=== PATIENT | male | born 1965 | race Caucasian/White ===

== ENCOUNTER → 2019-06-03 09:54 | Outpatient (CLI) | payer OTHER, SELFPAY ==
[2019-06-03 09:51] VITALS: BMI 44.8
--- NOTE | 2019-06-03 09:58 | RAD_ITS ---
STUDY: X-RAY - LEFT WRIST REASON FOR EXAM: Male, 53 years old. Medial wrist pain following injury. TECHNIQUE: 3 view(s) of the wrist were obtained. COMPARISON: None. FINDINGS: Normal visualized distal radius and ulna. Normal radiocarpal articulation. Normal distal radioulnar articulation. Normal carpal bones. Normal carpal articulations. Normal carpometacarpal articulation of the thumb. Normal second through fifth carpometacarpal articulations. Normal visualized metacarpal bones. The soft tissue structures are unremarkable. RAD/Wrist min 3 Views IMPRESSION: Normal x-ray examination of the wrist. Electronically Signed: Anival Nesbitt, at 10:27 EDT , Service support ,
== END ==
PROVIDERS: Family Provider Family Medicine; PCP Family Medicine; Referring Provider Physician Assistant; Visit Provider Physician Assistant
DX: M25.532 Pain in left wrist (principal)
CPT/HCPCS: 73110

== ENCOUNTER 2019-11-12 22:37 | Emergency (ER) | payer OTHER, SELFPAY ==
[2019-06-03 09:51] VITALS: BMI 44.8
[2019-11-12 22:38] VITALS: BP 177/111; PULSE 89; RESP 16; TEMP 36.8; O2SAT 95; BMI 45.1
--- NOTE | 2019-11-12 22:49 | EKG12_ITS ---
Test Reason : SYNCOPE Blood Pressure : / mmHG Vent. Rate : 087 BPM Atrial Rate : 087 BPM P-R Int : 164 ms QRS Dur : 084 ms QT Int : 350 ms P-R-T Axes : 048 044 028 degrees QTc Int : 421 ms Normal sinus rhythm Normal ECG Confirmed by TANJA CONLEY, BAMBI ([id number]), editor trade journal MAX HUYNH ([id number]) on 11/15/2019 10:27:57 AM Referred By: SERGIO Confirmed By:BAMBI AGRAWAL MD
--- NOTE | 2019-11-12 22:50 | ED.VIS.GEN ---
History of Present Illness Chief Complaint: Syncope Informant: Patient Narrative: Stated that he has had upper respiratory infection for last 2 weeks with cough. The cough is had yellow and occasional clear sputum. Positive sick contacts at home. Non-smoker. No fevers or chills. He has been using cough lozenges. Patient had a coughing fit lasting a minute tonight. He stated that he felt lightheaded and passed out. This was witnessed by family. He woke up a few moments later. There is no seizure activity. The patient has never had passed out before. He denies chest pain or shortness of breath. Currently he feels normal. Came in for further evaluation. Denies any cardiac history. Only medical history per patient is hypertension. Past Medical History - Allergies and Home Meds Allergies/Adverse Reactions: Allergies No Known Allergies Allergy (Unverified 11/12/19 22:40) Primary Care Physician: NOT,DEFINED [NON-STAFF] - Prior records reviewed: Yes Past Medical History: - - Hypertension Surgical History: no surgical history Lives: With Family Smoking Status: Never smoker Alcohol: None Drugs: None Review of Systems General: Denies: Chills, Fever, Sweats Eyes: Denies: Visual changes - bilaterally, Diplopia ENT: Denies: Rhinorrhea, Sore throat Cardiovascular: Denies: Chest pain, Palpitations Respiratory: Reports: Cough. Denies: Dyspnea, Dyspnea on exertion Gastrointestinal: Denies: Abdominal pain, Nausea, Vomiting, Diarrhea, Melena, Hematochezia Genitourinary: Denies: Dysuria, Hematuria, Frequency Musculoskeletal: Denies: Back pain, Extremity Pain Skin: Denies: Rash, Wounds Neurological: Denies: Headache, Weakness, Numbness Physical Exam Vital Signs/Narrative: Vital Signs Temp Pulse Resp BP Pulse Ox 11/12/19 22:38 98.3 F 89 16 177/111 H 95 General: Well nourished, Well developed, No Acute Distress Head: Normocephalic, Atraumatic Eyes: Perrl, EOMI ENT: Moist mucous membranes, No rhinorrhea Neck: Supple, Nontender Cardiovascular: Regular rate, Regular rhythm, No murmurs Respiratory: No distress, CTA bilaterally, Chest nontender Abdomen: Soft, Nontender, Nondistended, Normal bowel sounds Back: Nontender, Normal Inspection Extremities: Nontender, No edema Skin: Normal color, No rash Neurological: Alert, Oriented x3, Cranial nerves II-XII grossly intact, Normal Strength, Normal Sensation Psychological: Normal affect, Normal Mood Diagnostic/Tx/Re-eval - Medical Decision Making Patient appears well. I suspect that this was a vasovagal episode versus transient hypoxia from coughing. However he stated he was able to breathe between coughing fits. EKG lab work and chest x-ray obtained. EKG shows sinus rhythm at a rate of 87 with no ischemia or arrhythmia. No evidence of Brugada syndrome or [id number]. Lab work shows a mildly low potassium. Troponin negative. CBC normal. Chest x-ray shows nothing acute. At this time I feel this is vasovagal. Patient reassured. We will follow-up as an outpatient and use [id number] cough regimen for suspected upper respiratory infection versus bronchitis that is viral in nature. I do not feel he needs antibiotics. ED Disposition - Plan for ED Patient: Disposition: Home or Assisted Living Diagnosis: Acute bronchitis, Vasovagal syncope Instructions: SYNCOPE, Vasovagal Referrals: NOT,DEFINED [NON-STAFF] -
--- NOTE | 2019-11-12 23:25 | RAD_ITS ---
HISTORY: PT HAS HAD A COLD AND STARTED COUGHING AND THEN PASSED OUT EXAMINATION/TECHNIQUE: XR Chest 2 Views: COMPARISON: None FINDINGS: Cardiac telemetry leads in place. Shallow inspiration with mild hypoventilation of the lung bases on the frontal view. Normal heart size. No focal infiltrate. No vascular congestion or pleural effusion. No pneumothorax. RAD/Chest PA and Lateral IMPRESSION: No acute cardiopulmonary disease. at 0009 Reported and signed by: Xander Tenorio MD Electronically Signed: Xander Tenorio, at 0:08 EST Tel , Service support ,
[2019-11-12 23:26] LABS: Absolute Lymphocyte Count 2.18 X10^3/uL (0.83-4.51); Absolute Neutrophil Count 4.5 X10^3/uL (2.0-7.7); Basophil# 0.05 X10^3/uL; Basophil% 0.6 % (0-1); Eosinophil# 0.37 X10^3/uL; Eosinophils% 4.5 % (0-5); Hematocrit 39.9 % (40-54); Hemoglobin 13.4 g/dL (13.0-16.5); Lymphocyte # 2.18 X10^3/ul (4.0); Lymphocyte % 26.7 % (19-41); Mean Corp Hgb Conc 33.6 g/dL (32-36); Mean Corpuscular Hgb 30.7 pg (27.0-32.0); Mean Corpuscular Volume 91.5 fL (80-94); Mean Platelet Vol. 8.9 fl (6.2-12.0); Monocyte% 12.3 % (0-10); NRBC Flagged by Analyzer 0 % (0-5); Neutrophil # 4.54 X10^3/uL (2.7-7.7); Neutrophil % 55.7 % (47-70); Platelet Count 222 K/mm3 (150-450); RBC Distribution Width CV 12.6 % (11.6-14.6); RBC Distribution Width SD 42.1 fl (35.1-43.9); Red Blood Count 4.36 M/mm3 (4.6-6.2); White Blood Count 8.2 K/mm3 (4.4-11.0)
[2019-11-12 23:37] VITALS: BP 155/102; PULSE 82; RESP 16; O2SAT 98
[2019-11-12 23:46] LABS: Anion Gap 6 (5-15); BUN 20 mg/dL (7-18); BUN/Creat Ratio 15.9 RATIO (10-20); Calcium,Total 8.6 mg/dL (8.5-10.1); Chloride 106 mmol/L (98-107); Creatinine, Serum 1.26 mg/dL (0.70-1.30); EST Glomerular Filtration Rate 64 mL/min (>60); Est Glom Filt Rate - Afr Amer 77 mL/min (>60); Estimated Creatinine Clearance 66.35 ml/min; Glucose 165 mg/dL (74-106); Potassium 3.3 mmol/L (3.5-5.1); Sodium Level 141 mmol/L (136-145)
[2019-11-13] VITALS: BP 143/89; PULSE 92; RESP 20; O2SAT 94
[2019-11-13 00:22] VITALS: BP 143/89; PULSE 85; RESP 16; O2SAT 96
== END 2019-11-13 00:23 | disposition home or self-care (01) ==
PROVIDERS: Emergency Provider Emergency Medicine; Family Provider Nurse Practitioner Family; PCP Nurse Practitioner Family
DX: J20.9 Acute bronchitis, unspecified (principal); R55 Syncope and collapse; I10 Essential (primary) hypertension
CPT/HCPCS: 36415; 71046; 80048; 84484; 85025; 93005; 99283; A4216

== ENCOUNTER → 2023-12-23 | Outpatient (CLI) | payer SELFPAY ==
--- OUTSIDE RECORDS SUMMARY | 2023-12-23 06:33 | XMS RPT_ITS | CCD ---
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 [employer] Name Role Phone Judit Irving S Unavailable [phone] Unavailable Unavailable Judit Irving Primary Care Unavailab le MONTAÑO, JOVITA ALONZO Attending Unavailable MONTAÑO, JOVITA ALONZO Referring Unavailable Mallapareddi, Judit Hernandez Primary Care Unavailab le MONTAÑO, JOVITA ALONZO Attending Unavailable MONTAÑO, JOVITA ALONZO Referring Unavailable Mallapareddi, Judit Hernandez Primary Care Unavailab le Mallapareddi, Judit Hernandez Attending Unavailab le Mallapareddi, Judit Hernandez Referring Unavailab le Mallapareddi, Judit Hernandez Primary Care Unavailab le Mallapareddi, Judit Hernandez Attending Unavailab le Mallapareddi, Judit Hernandez Referring Unavailab le MALLAPAREDDI, JUDIT HERNANDEZ S Primary Care Unavail able Mallapareddi MPH, Judit Henriquez Primary Care Pro vider JUDIT IRVING S Attending Unavail able MALLAPAREDTRIP, JUDIT HERNANDEZ S Primary Care Unavail able MALLAPAREDDI, JUDIT HERNANDEZ S Attending Unavail able MALLAPAREDDI, JUDIT HERNANDEZ S Primary Care Unavail able MALLAPAREDDI, JUDIT HERNANDEZ S Attending Unavail able MALLAPAREDDI, JUDIT HERNANDEZ S Primary Care Unavail able MALLAPAREDDI, JUDIT HERNANDEZ S Attending Unavail able MALLAPAREDDI, JUDIT HERNANDEZ S Primary Care Unavail able Medications Current Medications Medication Drug Class(es) Dates Sig (Normalized) Sig (Original) carvedilol 6.25 mg oral tablet (1 source) alpha-Adrener gic Piedad, beta-Adrenerg ic Piedad Start: 4 End: 5 take 1 tablet by mouth twice daily at mealtime carvedilol (Coreg) 6.25 mg tablet Indications: Primary hypertension Take 1 tablet (6.25 mg) by mouth 2 times a day with meals. 60 tablet 11 2023 11/13/2024 Active hydroCHLOROthiazide 50 mg oral tablet (20 sources) Thiazide Diuretic Start: 4 End: 5 take 1 tablet by mouth once daily hydroCHLOROthiazide (HYDRODiuril) 50 mg tablet Indications: Primary hypertension Take 1 tablet (50 mg) by mouth once daily. 90 tablet 3 2023 11/13/2024 Active Completed/Discontinued Medications Medication Drug Class(es) Dates Sig (Normalized) Sig (Original) Multi Vitamin Oral Tablet (17 sources) Multi Vitamin Or al Tablet Quantity: 0 Refills: 0 Ordered: 20-Jul-2020 DO Active Problems Active Problems Problem Classification Problem Date Documented Date Episodic/Chronic Diabetes mellitus without complication (19 sources) Diabetes mellitus; Translations: [Diabetes mellitus without mention of complication, type II or unspecified type, not stated as uncontrolled] Onset: 03-25-2023 Chronic Diabetes mellitus without complication (17 sources) Impaired fasting glycemia; Translations: [Impaired fasting glucose] Episodic Essential hypertension (20 sources) Hypertensive disorder; Translations: [Unspecified essential hypertension] Onset: 10-03-2023 10-03-2023 Chronic Genitourinary symptoms and ill-defined conditions (17 sources) Nocturia; Translations: [Nocturia] Episodic Hyperplasia of prostate (20 sources) Benign prostatic hypertrophy without outflow obstruction; Translations: [Hypertrophy (benign) of prostate without urinary obstruction and other lower urinary tract symptom (LUTS)] Resolved: 2021 Chronic Other and unspecified benign neoplasm (17 sources) Polyp of colon; Translations: [Benign neoplasm of colon] Episodic Other liver diseases (14 sources) Enzyme level - finding; Translations: [Nonspecific elevation of levels of transaminase or lactic acid dehydrogenase [LDH]] Episodic Other male genital disorders (19 sources) Male erectile dysfunction, unspecified; Translations: [Erectile dysfunction] Onset: 03-25-2023 Chronic Other nutritional; endocrine; and metabolic disorders (17 sources) Obesity; Translations: [Obesity, unspecified] Chronic Other nutritional; endocrine; and metabolic disorders (2 sources) Body mass index 40+ - severely obese; Translations: [Morbid obesity] Chronic Other screening for suspected conditions (not mental disorders or infectious disease) (9 sources) Patient encounter status; Translations: [Screening for malignant neoplasms of prostate] Onset: 10-03-2023 10-03-2023 Episodic Residual codes; unclassified (17 sources) Sleep apnea; Translations: [Unspecified sleep apnea] Chronic Residual codes; unclassified (17 sources) Obstructive sleep apnea syndrome; Translations: [Obstructive sleep apnea (adult)(pediatric)] Chronic Spondylosis; intervertebral disc disorders; other back problems (3 sources) Prolapsed lumbar intervertebral disc; Translations: [Other intervertebral disc displacement, lumbar region] Onset: 2023 2023 Chronic Spondylosis; intervertebral disc disorders; other back problems (3 sources) Acute back pain with sciatica; Translations: [Lumbago with sciatica, right side] Onset: 10-03-2023 10-03-2023 Episodic Past or Other Problems Problem Classification Problem Date Documented Da te Episodic/Chronic Fluid and electrolyte disorders (6 sources) Hypokalemia; Translations: [Hypopotassemia] Onset: 03-25-2023 Episodic Unclassified (2 sources) Onset: 03-25-2023 03-25-2023 Results Test Name Value Interpretation Reference Range Facil ity Vital Signs Date Time Vital Sign Value Performing Clinician Fatemeh lemons 2023 08:16-0500 Body mass index (BMI) [Ratio] 42.92 kg/m2 Judit Irving MD MPH Work Phone: [facility] 2023 08:16-0500 Body weight 132.18 kg Judit Irving MD MPH Work Phone: [facility] 2023 08:16-0500 Diastolic blood pressure 96 mm[Hg] Judit Irving MD MPH Work Phone: [facility] 2023 08:16-0500 Heart rate 79 /min Judit Irving MD MPH Work Phone: [facility] 2023 08:16-0500 SaO2% (BldA) [Mass fraction] 94 % Judit Irving MD MPH Work Phone: [facility] 2023 08:16-0500 Systolic blood pressure 150 mm[Hg] Judit Irving MD MPH Work Phone: [facility] 10-03-2023 09:59-0500 Body mass index (BMI) [Ratio] 42.19 kg/m2 Judit Irving MD MPH Work Phone: [facility] 10-03-2023 09:59-0500 Body weight 129.96 kg Judit Irving MD MPH Work Phone: [facility] 10-03-2023 09:59-0500 Diastolic blood pressure 110 mm[Hg] Judit Irving MD MPH Work Phone: [facility] 10-03-2023 09:59-0500 Heart rate 78 /min Judit Irving MD MPH Work Phone: [facility] 10-03-2023 09:59-0500 SaO2% (BldA) [Mass fraction] 95 % Judit Irving MD MPH Work Phone: [facility] 10-03-2023 09:59-0500 Systolic blood pressure 186 mm[Hg] Judit Irving MD MPH Work Phone: [facility] 10-04-2022 07:47-0500 Body mass index (BMI) [Ratio] 41.83 kg/m2 Judit Gomezdi Work Phone: YO[facility]Ecwjpae-Wwwrjom Work Phone: 10-04-2022 07:47-0500 Body surface area Derived from formula 2.39 m2 Judit Mendesreddi Work Phone: WL-Ekavkgk-Timnxcv Work Phone: 10-04-2022 07:47-0500 Body weight 128.39 kg Judit Mendesredtrip Work Phone: HM-Wbbjxcw-Stqhvxh Work Phone: 10-04-2022 07:47-0500 Diastolic blood pressure 86 mm[Hg] Judit Nag S Mallapareddi Work Phone: CI-Ezeexrk-Epbidqe Work Phone: 10-04-2022 07:47-0500 Heart rate 81 /min Judit Nag S Mallapareddi Work Phone: SL-Nedcccm-Ubuyeyy Work Phone: 10-04-2022 07:47-0500 Systolic blood pressure 130 mm[Hg] Judit Nag S Mallapareddi Work Phone: TF-Ckmctvn-Qnqeyle Work Phone: 09-10-2022 07:45-0500 Body height 175.2 cm Judit Nag S Mallapareddi Work Phone: TJ-Lboksxh-Vigkxbj Work Phone: 09-10-2022 07:45-0500 Body mass index (BMI) [Ratio] 41.19 kg/m2 Judit Nag S Mallapareddi Work Phone: EV-Gbhnaoo-Dlouevp Work Phone: 09-10-2022 07:45-0500 Body surface area Derived from formula 2.38 m2 Judit Nag S Mallapareddi Work Phone: KD-Mzkcjoy-Hidcock Work Phone: 09-10-2022 07:45-0500 Body weight 126.41 kg Judit Nag S Mallapareddi Work Phone: IT-Toysryt-Jgjkqhq Work Phone: 09-10-2022 07:45-0500 Diastolic blood pressure 84 mm[Hg] Judit Nag S Mallapareddi Work Phone: KN-Edsdltx-Klngmea Work Phone: 09-10-2022 07:45-0500 Heart rate 74 /min Judit Nag S Mallapareddi Work Phone: IL-Wogsmvi-Efztxug Work Phone: 09-10-2022 07:45-0500 Systolic blood pressure 126 mm[Hg] Judit Nag S Mallapareddi Work Phone: [facility] Work Phone: 02-05-2022 07:45-0400 Body height 175.26 cm Judit Nag S Mallapareddi Work Phone: [facility] Work Phone: 02-05-2022 07:45-0400 Body mass index (BMI) [Ratio] 40.83 kg/m2 Judit Nag S Mallapareddi Work Phone: [facility] Work Phone: 02-05-2022 07:45-0400 Body surface area Derived from formula 2.37 m2 Judit Nag S Mallapareddi Work Phone: [facility] Work Phone: 02-05-2022 07:45-0400 Body weight 125.42 kg Judit Nag S Mallapareddi Work Phone: [facility] Work Phone: 02-05-2022 07:45-0400 Diastolic blood pressure 90 mm[Hg] Judit Nag S Mallapareddi Work Phone: [facility] Work Phone: 02-05-2022 07:45-0400 Heart rate 68 /min Judit Nag S Mallapareddi Work Phone: [facility] Work Phone: 02-05-2022 07:45-0400 Systolic blood pressure 120 mm[Hg] Judit Nag S Mallapareddi Work Phone: [facility] Work Phone: 2021 08:57-0500 Body height 175.26 cm Judit Nag S Mallapareddi Work Phone: HU-Xqgfbdb-Pgmemil Work Phone: 2021 08:57-0500 Body mass index (BMI) [Ratio] 41.35 kg/m2 Judit Nag S Mallapareddi Work Phone: NX-Klyjklm-Jxycslj Work Phone: 2021 08:57-0500 Body surface area Derived from formula 2.38 m2 Judit Nag S Mallapareddi Work Phone: AT-Wrtturc-Sugydpi Work Phone: 2021 08:57-0500 Body weight 127.01 kg Judit Nag S Mallapareddi Work Phone: GN-Kewadqh-Nrhphqk Work Phone: 2021 08:57-0500 Respiratory rate 18 /min Judit Nag S Mallapareddi Work Phone: [facility] Work Phone: 07-24-2021 07:46-0400 Body height 175.26 cm Judit Nag S Mallapareddi Work Phone: [facility] Work Phone: 07-24-2021 07:46-0400 Body mass index (BMI) [Ratio] 40.66 kg/m2 Judit Nag S Mallapareddi Work Phone: [facility] Work Phone: 07-24-2021 07:46-0400 Body surface area Derived from formula 2.37 m2 Judit Nag S Mallapareddi Work Phone: [facility] Work Phone: 07-24-2021 07:46-0400 Body weight 124.88 kg Judit Nag S Mallapareddi Work Phone: [facility] Work Phone: 07-24-2021 07:46-0400 Diastolic blood pressure 90 mm[Hg] Judit Nag S Mallapareddi Work Phone: [facility] Work Phone: 07-24-2021 07:46-0400 Heart rate 68 /min Judit Nag S Mallapareddi Work Phone: [facility] Work Phone: 07-24-2021 07:46-0400 Systolic blood pressure 122 mm[Hg] Judit Nag S Mallapareddi Work Phone: [facility] Work Phone: 04-20-2021 07:41-0400 Body height 175.26 cm Judit Nag S Mallapareddi Work Phone: [facility] Work Phone: 04-20-2021 07:41-0400 Body mass index (BMI) [Ratio] 42.97 kg/m2 Judit Nag S Mallapareddi Work Phone: [facility] Work Phone: 04-20-2021 07:41-0400 Body surface area Derived from formula 2.42 m2 Judit Nag S Mallapareddi Work Phone: [facility] Work Phone: 04-20-2021 07:41-0400 Body weight 131.99 kg Judit Nag S Mallapareddi Work Phone: [facility] Work Phone: 04-20-2021 07:41-0400 Diastolic blood pressure 84 mm[Hg] Judit Nag S Mallapareddi Work Phone: [facility] Work Phone: 04-20-2021 07:41-0400 Heart rate 72 /min Judit Nag S Mallapareddi Work Phone: [facility] Work Phone: 04-20-2021 07:41-0400 Systolic blood pressure 124 mm[Hg] Judit Nag S Mallapareddi Work Phone: -[facility] Work Phone: 03-26-2021 08:14-0400 Body height 175.26 cm Judit Henriquez Mallapareddi Work Phone: XB-Noxlcxd-Aqptrmo Work Phone: 03-26-2021 08:14-0400 Body mass index (BMI) [Ratio] 43.56 kg/m2 Judit Henriquez Mallapareddi Work Phone: JT-Ynfazcq-Fwiuxlo Work Phone: 03-26-2021 08:14-0400 Body surface area Derived from formula 2.44 m2 Judit Henriquez [employer] Work Phone: JN[facility]Ydaamxp[facility] Work Phone: 03-26-2021 08:14-0400 Body weight 133.81 kg Judit Henriquez Mallapareddi Work Phone: OQ-Vrutdwe-Izelusg Work Phone: 03-26-2021 08:14-0400 Diastolic blood pressure 87 mm[Hg] Judit Henriquez [employer] Work Phone: HD-Gnzvtsz-Gctuohh Work Phone: 03-26-2021 08:14-0400 Heart rate 77 /min Judit Henriquez [employer] Work Phone: LF-Aijezrn-Lkueadf Work Phone: 03-26-2021 08:14-0400 Systolic blood pressure 146 mm[Hg] Judit Henriquez [employer] Work Phone: QM-Mbumvnb-Hboubgw Work Phone: Encounters Encounter Date Encounter Type Care Provider Facility Start: 12-15-2023 End: 12-15-[address] [facility] Start: 2023 End: [address] [facility] Start: 2023 End: 2023 Office outpatient visit 15 minutes Judit Irving MD MPH Work Phone: [facility] Procedures Date Procedure Procedure Detail Performing Clinician Start: 11-13-2023 Lipid 1996 panel - S chris or Plasma Judit Irving MD MPH Work Phone: Start: 03-25-2023 Basic metabolic 2000 panel - Serum or Plasma JUDIT IRVING Start: 03-25-2023 Hemoglobin A1c/Hemoglobin.total in Blood JUDIT IRVING Start: 09-09-2022 Lipid 1996 panel - S chris or Plasma Judit Irving MD MPH Work Phone: Start: 09-08-2018 [object Object] Plan of Treatment Date Care Activity Detail Author Start: 10-21-2027 Screening for malignant neoplasm of colon [facility] Start: 08-06-2027 DTaP/Tdap/Td Vaccines (2 - Td or Tdap) DTaP/Tdap/Td Vaccines (2 - Td or Tdap) [facility] Start: 11-13-2024 Lipid panel Lipid Panel [facility] Start: 02-12-2024 Hemoglobin A1c measurement Diabetes: Hemoglobin A1C [facility] Start: 10-03-2023 End: 10-03-2024 Basic metabolic 2000 panel - Serum or Plasma Basic Metabolic Panel Lab Routine Primary hypertension Type 2 diabetes mellitus without complication, without long-term current use of insulin ([facility]) Expected: 10/03/2023 (Approximate), Expires: 10/03/2024 [facility] Work Phone: Immunizations Immunization Date Immunization Notes Care Provider Fa cilioneil 08-06-2017 tetanus toxoid, reduced diphtheria toxoid, and acellular pertussis vaccine, adsorbed Judit Irving Work Phone: [facility] Work Phone: Payers Date Payer Category Payer Unknown 2023 Unknown [id number] 2021 Unknown [id number] 1965 Unknown [id number] [id number]. [id number] 1966 Unknown [id number] 2.16. [id number] 1966 Unknown [id number] 2.16. [id number] 1966 Unknown [id number] 2.16. [id number] 1966 Unknown [id number] 2.16.84 [id number] 1966 Unknown [id number] 2.16.8 [id number] 1966 Unknown [id number] 2.16.8 [id number] 1966 Unknown [id number] 2.16.8 [id number] 1966 Unknown [id number] [id number] Social History Date Type Detail Facility Start: 03-25-2023 End: 10-03-2023 Never a smoker Never a smoker [facility]Mbmtrmz[facility]Ygfxmbu Work Phone: Start: 03-25-2023 Tobacco smoking stat [facility] Never smoked tobacco [facility] Work Phone: Start: 03-25-2023 Tobacco use and exposure Smokeless tobacco non-user [facility] Work Phone: Start: 10-03-2023 End: 2023 Alcohol intake Lifetime non-drinker (finding) [facility] Work Phone: Start: 03-25-2023 End: 10-03-[address] [facility] Work Phone: Start: 1965 Sex Assigned At Not on file [facility] Work Phone: Start: 09-23-2023 End: 11-13-2023 Exposure to SARS-CoV-2 (event) Not sure [facility] Clinical Notes 07-04-2020 to 2023 Judit Irving MD MPH - 2023 8:20 AM Georgi Irving MD MPH - 10/03/2023 9:40 AM EST Note Date & Type Note Facility 2023 History of Present illness Narrative Subjective Patient ID: Jaspreet Chowdhury is a 58 y.o. male who presents for Follow-up (PT is here today for 4 week OV. ). HPI Here for follow up. HTN: Reports his BP is still running high, reports he's only been on the med change for about a week, cause he did not realize the amount taken had been doubled. Plan: Increasing hydrochlorothiazide dose to 50 mg. Would like to see about getting a referral to a spine dr in [place] at [facility]. Reports that his chiropractor has ordered an MRI which showed herniated disc in lumbar area (L3-L4; L4-L5). Reports that he is in a lot of pain and thinks is contributing to his high blood pressure. He takes Naproxen intermittently - twice a week. Review of Systems ROS negative except discussed above in HPI. Vitals: 11/14/23 0816 BP: (!) 150/96 Pulse: 79 SpO2: 94% Objective Physical Exam Constitutional: Appearance: Normal appearance. Cardiovascular: Rate and Rhythm: Normal rate and regular rhythm. Pulses: Normal pulses. Heart sounds: Normal heart sounds. Pulmonary: Effort: Pulmonary effort is normal. Breath sounds: Normal breath sounds. Musculoskeletal: Cervical back: Normal range of motion and neck supple. Lymphadenopathy: Cervical: No cervical adenopathy. Neurological: Mental Status: He is alert. Assessment/Plan Jaspreet was seen today for follow-up. Diagnoses and all orders for this visit: Primary hypertension (Primary) - carvedilol (Coreg) 6.25 mg tablet; Take 1 tablet (6.25 mg) by mouth 2 times a day with meals. - hydroCHLOROthiazide (HYDRODiuril) 50 mg tablet; Take 1 tablet (50 mg) by mouth once daily. Lumbar herniated disc - Referral to Spine Surgery; Future Follow up in 4 weeks. Judit Irving MD MPH documented in this encounter [facility] Work Phone: 10-03-2023 History of Present illness Narrative Subjective Patient ID: Jaspreet Chowdhury is a 57 y.o. male who presents for Follow-up (PT is here for 6 month FUV. ). HPI Here for follow up. 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 Denies symptoms of chest pain, palp or sob. Plan: increasing hydrochlorothiazide. Will consider adding another med if not under control the next time. Sciatic pain-right side. DM2: needs to be reassessed now. Review of Systems ROS negative except discussed above in HPI. Vitals: 10/03/23 0959 BP: (!) 186/110 Pulse: 78 SpO2: 95% Objective Physical Exam Constitutional: Appearance: Normal appearance. Cardiovascular: Rate and Rhythm: Normal rate and regular rhythm. Pulmonary: Effort: Pulmonary effort is normal. Breath sounds: Normal breath sounds. Musculoskeletal: Cervical back: Normal range of motion and neck supple. Lymphadenopathy: Cervical: No cervical adenopathy. Neurological: Mental Status: He is alert. Assessment/Plan Jaspreet was seen today for follow-up. Diagnoses and all orders for this visit: Acute bilateral low back pain with right-sided sciatica (Primary) Primary hypertension - Basic Metabolic Panel; Future - hydroCHLOROthiazide (HYDRODiuril) 25 mg tablet; Take 2 tablets (50 mg) by mouth once daily. - lisinopril 40 mg tablet; Take 1 tablet (40 mg) by mouth once daily. - potassium chloride CR 20 mEq ER tablet; Take 1 tablet (20 mEq) by mouth once daily. Type 2 diabetes mellitus without complication, without long-term current use of insulin ([facility]) - Hemoglobin A1C; Future - Basic Metabolic Panel; Future Lipid screening - Lipid Panel; Future Prostate cancer screening - Prostate Specific Antigen, Screen; Future Follow up in 3-4 weeks Judit Irving MD MPH documented in this encounter [facility] Work Phone: 09-24-2022 History of Present illness Narrative Patient presents to the office today for a Yearly w/PSA. Chronic BPH sx are mild and stable. Denies urgency and frequency. Denies dysuria. Denies hematuria. Nocturia x1. No medication for LUT'S. Most recent PSA was 0.40 (09/24), prior was 0.43 (07/24) Previous PSA was 0.47 on 07/2020. ED is chronic. Cialis PRN. Libido is good. Energy level is good [facility] Work Phone: 02-05-2022 History of Present illness Narrative Here for follow up..DM2: A1C is stable at 6.1.Has been taking Metformin regularly. Denies side-effects from the medication.He has been watching his diet as well and has not gained weight.Encouraged to continue to monitor his diet and take medications regularly.Continue current regimen for now.HTN (hypertension) - Has BP machine and he monitors his blood pressure at home. Reports that it is under good control. (120s/80s). Denies chest pain, palpitations, dyspnea, numbness, weakness, edema, claudication, double vision or loss of vision.Plan: BP with elevated diastolic blood pressure. Recommended to monitor closely and send information if the blood sleep blood pressure is consistently at /above 90. We will continue current regimen for now.BPH without obstruction/lower urinary tract symptoms, Male erectile disorder - follows with Dr. Montaño. He is trying to getting in touch with his urologist again. His previous appointment was cancelled recently. He will follow up with him again. Denies nocturia.Obesity - stable. 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 So gets good physical activity. drinks mostly water. I love meat .DARRICK: Received the new device. [employer] in [place] has been working with him in regards to CPAP. will review CPAP download information.Personal hx of colon polyps - colonoscopy due in 2016.Follow up in 6 months.Reviewed download information for his obstructive sleep apnea. Appears that he is using regularly and more than 4 hours. Average usage is about 8 hours 6 minutes on the days he is used. His CPAP is set at 14 cm of pressure. Residual AHI is 0.4. Low leak as well. Can continue with the current setting. [facility] Work Phone: 07-24-2021 History of Present illness Narrative Patient is here for f/u. Chronic BPH sx are mild and stable. Denies urgency and frequency. Denies dysuria. Denies hematuria. Nocturia x1. No medication for LUT'S. Most recent PSA was 0.43 (07/24) Previous PSA was 0.47 on 07/2020. ED is chronic. Cialis PRN. Libido is good. Energy level is good [facility]Rvtpncm[facility]Uylbeq[facility] Work Phone: 07-24-2021 History of Present illness Narrative Here for follow up regarding DM.DM2: A1C is better now with 6.1 (down from 6.8)Has been taking Metformin regularly. Denies side-effects from the medication.He has been watching his diet as well and has lost about 15 pounds.Encouraged to continue to monitor his diet and take medications regularly.HTN (hypertension) - Has BP machine and he monitors his blood pressure at home. Reports that it is under good control. (120s/80s). Denies chest pain, palpitations, dyspnea, numbness, weakness, edema, claudication, double vision or loss of vision.BPH without obstruction/lower urinary tract symptoms, Male erectile disorder - follows with Dr. Montaño. He is trying to getting in touch with his urologist again. His previous appointment was cancelled recently. He will follow up with him again. Denies nocturia.Obesity - stable. 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 So gets good physical activity. drinks mostly water. I love meat .DARRICK: Received the new device.Personal hx of colon polyps - colonoscopy due in 2017.Right flank pain - overall resolved -[facility] Work Phone: 10-20-2020 History of Present illness Narrative Patient reports that he has been in good health in the last 6 months overall. Did not sustain any major injuries during the fall. Denies any concerns at this time. Reports that no major stress at this time.BPH without obstruction/lower urinary tract symptoms, Male erectile disorder - follows with Dr. Montaño. He is trying to getting in touch with his urologist again. His previous appointment was cancelled recently. He will follow up with him again. Denies nocturia.HTN (hypertension) - Has BP machine and he monitors his blood pressure at home. Reports that it is under good control. (120s/80s). Denies chest pain, palpitations, dyspnea, numbness, weakness, edema, claudication, double vision or loss of vision.Obesity - stable. 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 So gets good physical activity. drinks mostly water. I love meat .DARRICK: Received the new device.Personal hx of colon polyps - colonoscopy due in 2017.Right flank pain - overall resolved -[facility] Work Phone: 07-04-2020 History of Present illness Narrative Patient is here for f/u. Chronic BPH sx are mild and stable. Denies urgency and frequency. Denies dysuria. Denies hematuria. Nocturia x1. No medication for LUT'S. Most recent PSA was 0.47 on 07/2020. ED is chronic. Cialis PRN. Libido is good. Energy level is good [facility] Work Phone: 07-04-2020 History of Present illness Narrative Patient is here for f/u. Chronic BPH sx are mild and stable. Denies urgency and frequency. Denies dysuria. Denies hematuria. Nocturia x1. No medication for LUT'S. Most recent PSA was 0.47 on 07/2020. ED is chronic. Cialis PRN. Libido is good. Energy level is good [facility] Work Phone: documented in this encounter [facility] Work Phone: Evaluation note* Diagnosis Primary hypertension- Primary Unspecified essential hypertension Lumbar herniated disc documented in this encounter [facility] Work Phone: Reason for referral (narrative)* Consultation (Routine) - Authorized Specialty Diagnoses / Procedures Referred By Contvanda t Referred To Contact Neurosurgery Diagnoses Lumbar herniated disc Judit Irving MD MPH [address] [facility] [place] [address] Referral ID Status Reason Start Date Expiration Date Visits Requested Visits Authorized [id number] Authorized Specialty Services Required 2023 11/13/2024 1 1 Scheduling Instructions Collin DO Todd Address: [address] [place] [address] [address], [place] [address] [facility] Work Phone: Summary Purpose Family History No Family History Records FoundUnknown Family Member Name Dates Details Family history of cardiac di sorder: Father(V17.49, Z82.49) Status:Active Family history of hypertensi on: Father, Sister(V17.49, Z82.49) Status:Active Family history of cerebrovas cular accident (CVA): Sister(V17.1, Z82.3) Status:Active Family history of malignant neoplasm of prostate: Brother(V16.42, Z80.42) Status:Active Unknown Family Member Name Dates Details Family history of cardiac di sorder: Father(V17.49, Z82.49) Status:Active Family history of hypertensi on: Father, Sister(V17.49, Z82.49) Status:Active Family history of cerebrovas cular accident (CVA): Sister(V17.1, Z82.3) Status:Active Family history of malignant neoplasm of prostate: Brother(V16.42, Z80.42) Status:Active Unknown Family Member Name Dates Details Family history of cardiac di sorder: Father(V17.49, Z82.49) Status:Active Family history of hypertensi on: Father, Sister(V17.49, Z82.49) Status:Active Family history of cerebrovas cular accident (CVA): Sister(V17.1, Z82.3) Status:Active Family history of malignant neoplasm of prostate: Brother(V16.42, Z80.42) Status:Active Unknown Family Member Name Dates Details Family history of cardiac di sorder: Father(V17.49, Z82.49) Status:Active Family history of hypertensi on: Father, Sister(V17.49, Z82.49) Status:Active Family history of cerebrovas cular accident (CVA): Sister(V17.1, Z82.3) Status:Active Family history of malignant neoplasm of prostate: Brother(V16.42, Z80.42) Status:Active Unknown Family Member Name Dates Details Family history of cardiac di sorder: Father(V17.49, Z82.49) Status:Active Family history of hypertensi on: Father, Sister(V17.49, Z82.49) Status:Active Family history of cerebrovas cular accident (CVA): Sister(V17.1, Z82.3) Status:Active Family history of malignant neoplasm of prostate: Brother(V16.42, Z80.42) Status:Active Unknown Family Member Name Dates Details Family history of cardiac di sorder: Father(V17.49, Z82.49) Status:Active Family history of hypertensi on: Father, Sister(V17.49, Z82.49) Status:Active Family history of cerebrovas cular accident (CVA): Sister(V17.1, Z82.3) Status:Active Family history of malignant neoplasm of prostate: Brother(V16.42, Z80.42) Status:Active Unknown Family Member Name Dates Details Family history of cardiac di sorder: Father(V17.49, Z82.49) Status:Active Family history of hypertensi on: Father, Sister(V17.49, Z82.49) Status:Active Family history of cerebrovas cular accident (CVA): Sister(V17.1, Z82.3) Status:Active Family history of malignant neoplasm of prostate: Brother(V16.42, Z80.42) Status:Active Unknown Family Member Name Dates Details Family history of cardiac di sorder: Father(V17.49, Z82.49) Status:Active Family history of hypertensi on: Father, Sister(V17.49, Z82.49) Status:Active Family history of cerebrovas cular accident (CVA): Sister(V17.1, Z82.3) Status:Active Family history of malignant neoplasm of prostate: Brother(V16.42, Z80.42) Status:Active Unknown Family Member Name Dates Details Family history of cardiac di sorder: Father(V17.49, Z82.49) Status:Active Family history of hypertensi on: Father, Sister(V17.49, Z82.49) Status:Active Family history of cerebrovas cular accident (CVA): Sister(V17.1, Z82.3) Status:Active Family history of malignant neoplasm of prostate: Brother(V16.42, Z80.42) Status:Active Unknown Family Member Name Dates Details Family history of cardiac di sorder: Father(V17.49, Z82.49) Status:Active Family history of hypertensi on: Father, Sister(V17.49, Z82.49) Status:Active Family history of cerebrovas cular accident (CVA): Sister(V17.1, Z82.3) Status:Active Family history of malignant neoplasm of prostate: Brother(V16.42, Z80.42) Status:Active Unknown Family Member Name Dates Details Family history of cardiac di sorder: Father(V17.49, Z82.49) Status:Active Family history of hypertensi on: Father, Sister(V17.49, Z82.49) Status:Active Family history of cerebrovas cular accident (CVA): Sister(V17.1, Z82.3) Status:Active Family history of malignant neoplasm of prostate: Brother(V16.42, Z80.42) Status:Active Unknown Family Member Name Dates Details Family history of cardiac di sorder: Father(V17.49, Z82.49) Status:Active Family history of hypertensi on: Father, Sister(V17.49, Z82.49) Status:Active Family history of cerebrovas cular accident (CVA): Sister(V17.1, Z82.3) Status:Active Family history of malignant neoplasm of prostate: Brother(V16.42, Z80.42) Status:Active Unknown Family Member Name Dates Details Family history of cardiac di sorder: Father(V17.49, Z82.49) Status:Active Family history of hypertensi on: Father, Sister(V17.49, Z82.49) Status:Active Family history of cerebrovas cular accident (CVA): Sister(V17.1, Z82.3) Status:Active Family history of malignant neoplasm of prostate: Brother(V16.42, Z80.42) Status:Active Unknown Family Member Name Dates Details Family history of cardiac di sorder: Father(V17.49, Z82.49) Status:Active Family history of hypertensi on: Father, Sister(V17.49, Z82.49) Status:Active Family history of cerebrovas cular accident (CVA): Sister(V17.1, Z82.3) Status:Active Family history of malignant neoplasm of prostate: Brother(V16.42, Z80.42) Status:Active Unknown Family Member Name Dates Details Family history of cardiac di sorder: Father(V17.49, Z82.49) Status:Active Family history of hypertensi on: Father, Sister(V17.49, Z82.49) Status:Active Family history of cerebrovas cular accident (CVA): Sister(V17.1, Z82.3) Status:Active Family history of malignant neoplasm of prostate: Brother(V16.42, Z80.42) Status:Active Advance Directives No Advanced Directives Records FoundNo Advanced Directives Records FoundNo Advanced Directives Records FoundNo Advanced Directives Records FoundNo Advanced Directives Records FoundNo Advanced Directives Records Found Chief Complaint f/uf/u6 month ov, no concerns.3 month ov, go over blood work.f/u6 month follow up with PSAmed check, no concerns.Yearly w/PSA Additional Source Comments (unrecognized sect ion and content) No Status Records FoundNo Status Records FoundNo Status Records FoundNo Status Records FoundNo Status Records FoundNo Status Records Found INFORMATION SOURCE (unrecogn ized section and content) DATE CREATED AUTHOR AUTHOR'S ORGANIZ ATION 07/28/2021 [facility] DATE CREATED AUTHOR AUTHOR'S ORGANIZ ATION 10/04/2022 [facility] DATE CREATED AUTHOR AUTHOR'S ORGANIZ ATION 10/04/2022 [facility] DATE CREATED AUTHOR AUTHOR'S ORGANIZ ATION 03/29/2023 [facility] DATE CREATED AUTHOR AUTHOR'S ORGANIZ ATION 12/15/2023 [facility] Reason for Visit (unrecogniz ed section and content) Reason Comments Follow-up PT is here today for 4 week OV. Reports his BP is still running high, reports he's only been on the med change for about a week, cause he did not realize the amount taken had been doubled. Would like to see about getting a referral to a spine dr in [place] at [facility]. Care Teams (unrecognized sec tion and content) Refinery [employer] Relationship Specialty Start Date End Date Judit Irving MD MPH [address] [facility], [facility] [address] [place] [address] PCP - General 07/04/20 FOR RECORDS PERTAINING TO PATIENTS WHO ARE OR HAVE BEEN ENROLLED IN A CHEMICAL DEPENDENCY/SUBSTANCEABUSE PROGRAM, SOME INFORMATION MAY BE OMITTED. This clinical summary was aggregated from multiple sources. Caution should be exercised in using it in the provision of clinical care. This summary normalizes information from multiple sources, and as a consequence, information in this document may materially change the coding, format and clinical context of patient data. In addition, data may be omitted in some cases. CLINICAL DECISIONS SHOULD BE BASED ON THE PRIMARY CLINICAL RECORDS. [employer] provides no warranty or guarantee of the accuracy or completeness of information in this document.
--- NOTE | 2023-12-23 06:43 | MRI_ITS ---
HISTORY: pain. TECHNIQUE: Multiplanar and multisequence MR images of the lumbar spine were obtained without intravenous contrast. 142 images. COMPARISON: XR 11/28/2023. FINDINGS: VERTEBRAE: Vertebral body heights maintained. Mild degenerative endplate changes. No other significant bone marrow signal abnormality. ALIGNMENT: Mild 2 mm retrolisthesis of L1-2. CONUS: Normal morphology and position of the conus medullaris at T12. INTERVERTEBRAL DISCS: T12-L1: Mild disc bulge with facet arthropathy resulting in minimal narrowing of the thecal sac and mild left foraminal narrowing based on the sagittal images. L1-2: Moderate disc bulge with facet arthropathy superimposed on a developmentally narrow spinal canal resulting in left L2 nerve root abutment or impingement, moderate central canal stenosis, and moderate bilateral foraminal narrowing. L2-3: Mild disc bulge with facet arthropathy superimposed on a developmentally narrow spinal canal resulting in mild-moderate central canal stenosis and bilateral foraminal narrowing. L3-4: Mild disc bulge with facet arthropathy superimposed on a developmentally narrow spinal canal with a 4 mm left posterior synovial cyst resulting in severe central canal stenosis, left L4-L5 nerve root abutment or impingement, and moderate bilateral foraminal narrowing. L4-5: Mild disc bulge with facet arthropathy resulting in mild central canal stenosis, moderate right, and mild left foraminal narrowing. L5-S1: Mild disc bulge with facet arthropathy resulting in minimal narrowing of the thecal sac and mild-moderate bilateral foraminal narrowing SOFT TISSUES: Mild posterior subcutaneous edema. No paraspinal fluid collection. Small right renal cyst. MRI/Spine Lumbar (Routine) IMPRESSION: Multilevel degenerative disc disease superimposed on a developmentally narrow spinal canal resulting in moderate spinal canal stenosis and foraminal narrowing as above. Degenerative disc and facet disease with a left synovial cyst at L3-4 resulting in severe spinal canal stenosis and left nerve root abutment/impingement. Electronically Signed: Luann Llanos MD at 15:53 EST ,
--- NOTE | 2023-12-23 06:45 | RAD_ITS ---
EXAM: XR ORBITS FOREIGN BODY CLINICAL INDICATION: HX METAL TO EYES; PRE MRI HX METAL TO EYES; PRE MRI TECHNIQUE: Frontal view(s) of the orbits. COMPARISON: No relevant prior studies available. FINDINGS: BONES/JOINTS: Unremarkable. No acute fracture. SINUSES: Unremarkable. No air-fluid levels. SOFT TISSUES: Unremarkable. No radiopaque foreign body. RAD/Orbits for Foreign Body IMPRESSION: Normal orbital x-rays. No radiopaque foreign body in either orbit. Electronically Signed: Nain Mejia MD at 7:00 EST Reading Location ID and State: [facility] / [place] , Service support ,
== END | disposition home or self-care (01) ==
LOC: MRI 06:30
PROVIDERS: PCP Nurse Practitioner Family; Referring Provider Orthopaedic Surgery; Visit Provider Orthopaedic Surgery
DX: M54.17 Radiculopathy, lumbosacral region (principal)
CPT/HCPCS: 70030; 72148

== ENCOUNTER → 2024-02-26 | Outpatient (CLI) | payer SELFPAY ==
--- NOTE | 2024-02-26 10:45 | RAD_ITS ---
STUDY: X-RAY - LUMBAR SPINE REASON FOR EXAM: Male, 58 years old. LUMBAR RADICULOPATHY/SPONDYLOLISTHESIS TECHNIQUE: Lateral flexion and extension view(s) of the lumbar spine were obtained. COMPARISON: MRI December 23, 2023 FINDINGS: Normal lumbar lordosis. There is grade 1 retrolisthesis at L1-2 and L2-3 and grade 1 anterior listhesis at L4-5 in the flexion and extension position. There is multilevel endplate spondylosis of the lumbar vertebrae. There is disc space narrowing at L1-2. There is facet spurring and sclerosis. There is no demonstrated fracture. The soft tissue structures are unremarkable. RAD/L/S Spine Bending Flex/Ext IMPRESSION: Degenerative change. No subluxation with flexion or extension. Electronically Signed: Benito Pelayo MD at 12:42 EDT ,
== END | disposition home or self-care (01) ==
LOC: RAD 10:39
PROVIDERS: Referring Provider Anesthesiology; Visit Provider Anesthesiology
DX: M54.16 Radiculopathy, lumbar region (principal)
CPT/HCPCS: 72120

== ENCOUNTER 2024-06-09 13:00 | Outpatient (RCR) | payer SELFPAY ==
--- NOTE | 2024-03-17 16:18 | HP.PTEVAL_ITS ---
Patient's Visit Information Visit Information Visit Information: SANDHYA VALENZUELA is a 58 year old M referred to Physical Therapy by Dr. Melo Weems DO with a diagnosis of LUMBAR DDD AND HIP OA. Date of Evaluation: 03/17/24 Physical Therapist: Scarlett Bui PT, Cert MDT Visit Plan Frequency: 2-3x /Week Duration: 4-6 Weeks Plan: LUMBAR AND R HIP US AT 1.5 W/CM2 X 8 MIN EA NEEDED FOR PAIN AND INFLAMMATION. POSTURE TRAINING FOR CORRECTION OF ANTERIOR PELVIC TILT IN STANDING AND WALKING. POSTURE EDUCATION FOR USE OF LUMBAR SUPPORT IN SITTING AND FREQUENT BREAKS FROM SITTING. HEP INSTRUCTION FOR CORE STRENGTH/STABILITY, HIP STRENGTHENING AND LE FLEXIBILITY WITH WRITTEN HEP. 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 CONSIDER AQUATIC THERAPY. 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 PLAYED SOFTBALL LAST FEBRUARY AND TRIED THIS YEAR AND COULD NOT Disability: NO Present symptoms: R LOW BACK PAIN AND TENDERNESS WITH LUMP, R BUTTOCK CRAMPING PAIN, R GROIN PAIN AND R KNEE PAIN. R HS CRAMPING. PATIENT DENIES ROSA LE NUMBNESS AND TINGLING. PATIENT REPORTS THE SYMPTOMS SEEM TO GO TOGETHER. Present since: ABOUT 18 MONTHS AGO Pain Scale: WORST 8/10, LEAST 1/10 Currently: 4/10 Is it getting better, worse or staying the same: STAYING THE SAME Commenced as a result of: NO APPARENT REASON Symptoms at onset: LOW BACK PAIN Worse: WALKING, ESPECIALLY WALKING ON CEMENT. TRYING TO LIFT R LEG INTO CAR SOMETIMES, BENDING, GETTING R LEG UP AND BENDING IN BACK TO PUT SHOE AND SOCK ON R FOOT (NOT A PROBLEM TO DO LEFT). Better: *SITTING* LYING DOWN FEELS GOOD TOO BUT NOT GOOD SITTING Disturbed sleep: NO Previous history/Previous treatment: UNREMARKABLE Treatment this episode: DR. CEBALLOS - PAIN MGMT - ENIO X 2 - LITTLE TO NO BENEFIT. MASSAGE THERAPY - TEMPORARY RELIEF. [address] WEEMS BUT HASN'T STARTED THEM YET. Meloxicam prescribed in February by Dr. Ceballos - TOOK PRN - ABOUT ONCE EVERY 2 WKS WITH SOME BENEFIT. CHIROPRACTIC ABOUT 1X/WK FOR 12 MONTHS - NO OVER-ALL BENEFIT - STOPPED IN AUG 2023. CONSULT WITH DR. MCGOWAN - REFERRED PATIENT TO DR. WEEMS AND DR. CEBALLOS. NO FOLLOW UP SCHEDULED WITH DR. MCGOWAN AT THIS TIME. PATIENT REPORTS NO SURGERY RECOMMENDED BY DR. MCGOWAN FOR HIS BACK AT THIS TIME AND HE SAID HE HAS ARTHRITIS IN HIS FACET JOINTS AND R HIP. Coughing/sneezing/straining: POSITIVE Gait: THIS CAUSES A LIMP MOST IF NOT ALL THE TIME BUT SOMETIMES ABLE TO STRAIGHTEN UP FOR A SHORT TIME. TIME AND DISTANCE LIMITED. NO AD. STEPS ARE FINE. Bowel or Bladder Dysfunction: NO Accidents: NO Unexplained weight loss: NO Imaging: PATIENT REPORTS HE HAS HAD X-RAYS OF HIS BACK AND HIP AND MRI OF HIS LUMBAR SPINE. SEE [facility] EMR. PMH/Recent major surgery: HTN. L ACHILLES REPAIR. Objective Objective: Sitting/Standing Posture: ANTERIOR PELVIC TILT Active Correction of posture: ONLY ABLE TO PARTIALLY CORRECT - NE Other Observations: THIS PATIENT AMBULATES INDEP'LY INTO WITHOUT ANY AD'S AND WITH A LIMP ON THE R LE. DECREASED ROSA STRIDE LENGTH. Sensory deficit: ROSA LE LIGHT TOUCH SENSATION GROSSLY INTACT AND SYMMETRICAL ROM deficit: MILD ROSA HS TIGHTNESS L>R. NEGATIVE ROSA SLR TEST. MILD ROSA CALF TIGHTNESS. ROSA HIP IR TIGHTNESS R > L. L HIP ER TIGHTNESS. Motor deficit: ROSA LE'S GROSSLY 5/5 WITH MMT'ING. Reflexes: UNABLE TO ELICIT ROSA LE DTR'S. Dural Signs: NEGATIVE ROSA LE'S. Lumbar mvmt loss: flex - NIL ext - MIN - P R GROIN PAIN - NW R SG - NIL L SG - MIN - P R GROIN PAIN - NW Core strength: FAIR Palpation: NO ACUTE TENDERNESS. PALPABLE LUMP R LOW BACK IN REGION TO THE R OF THE SACRUM. PATIENT REPORTS DR. CEBALLOS IS AWARE OF THIS LUMP. THE LUMP IS A LITTLE TENDER AND PATIENT REPORTS IT HAS STAYED THE SAME IN SIZE. OTHER: TRUNK FLEXION IS LIMITED IN SITTING WITH R LE IN ER BUT NOT WITH L LE IN ER. Special Tests R Hip Scour: Positive R Hip RYAN - Intraarticular Pathology: Positive Balance/Special Test Scores Oswestry Low Back Score: 8 Lower Extremity Functional Score: 44 Goals Goal 1:: DECREASE C/O BACK AND HIP PAIN BY AT LEAST 80% TO ALLOW FOR RETURN TO PLOF Goal Time Frame: 6-8 Weeks Goal 2:: RESTORE PAINFREE CORE AND R HIP FLEXIBILITY TO WNL Goal Time Frame: 6-8 Weeks Goal 3:: PATIENT WILL HAVE GOOD CORE STRENGTH AND CORRECTED ANTERIOR PELVIC TILT POSTURE. Goal Time Frame: 6-8 Weeks Goal 4:: INDEP HEP Goal Time Frame: 6-8 Weeks Rehabilitation Potential Physical Therapy Diagnosis: CORE AND R HIP PAIN, STIFFNESS AND WEAKNESS LIMITED NORMAL ADL'S, WORK AND RECREATIONAL ACTIVITIES. Rehabilitation Potential: Fair Anticipated Interventions Patient/Client Instruction: Educate patient on: Condition, Plan of Care and Risk Factors For the Purpose of:: To improve self management Therapeutic Exercise to Include: Strength training, Body mechanics, Postural training, Flexibilty training, Neuromotor development, In an aquatic setting and Dynamic Lumbar Stabilization For the Purpose of:: To decrease pain, To improve muscle performance and motor function, To increase tolerance to activity/condition/position, To improve ability of physical actions for home/community/work/leisure, To improve gait and locomotor functions and To increase flexibility/ROM Cryotherapy (ice pack, ice massage): Yes Thermo therapy (hot pack): Yes Ultrasound (thermal/non thermal): Yes For the Purpose of:: To decrease pain and To improve nutrient delivery to tissue Text: Thank you for the opportunity to evaluate your patient. For Medicare and Medicare HMO plans, please review the plan of care and approve it. It will need to be FAXED BACK to us at [phone] for Medicare purposes. For Medicare only, by signing this I certify the plan of care. Please let me know if there are questions or concerns regarding this plan of care. Physician Signature: Date:
--- NOTE | 2024-07-16 08:36 | HP.PT.NRP ---
Patient Information Patient Information: SANDHYA VALENZUELA was seen in my office for initial evaluation on 03/17/24. The following Plan of Care was established for this patient: POC Established Initial Frequency: 2-3x /Week Initial Duration: 4-6 Weeks Anticipated Interventions Patient/Client Instruction: Educate patient on: Condition, Plan of Care and Risk Factors For the Purpose of:: To improve self management Therapeutic Exercise to Include: Strength training, Body mechanics, Postural training, Flexibilty training, Neuromotor development, In an aquatic setting and Dynamic Lumbar Stabilization For the Purpose of:: To decrease pain, To improve muscle performance and motor function, To increase tolerance to activity/condition/position, To improve ability of physical actions for home/community/work/leisure, To improve gait and locomotor functions and To increase flexibility/ROM Cryotherapy (ice pack, ice massage): Yes Thermo therapy (hot pack): Yes Ultrasound (thermal/non thermal): Yes For the Purpose of:: To decrease pain and To improve nutrient delivery to tissue Last Seen Last Seen: This patient was last seen in our office 06/09/24. Pertinent comments regarding their Physical therapy will appear below: It has been my pleasure to see this patient for a total of 14 visits. This patient has not returned to Physical Therapy for more visits and is appropriate to return to MD for further follow-up as needed. At this point I will be discontinuing this patient from physical therapy. I would be happy to see this patient again in the future if found appropriate by the physician. Thank you! Scarlett Bui, PT, Cert MDT Balance/Gait/Functional tests Balance/Special Test Scores Oswestry Low Back Score: 8 Lower Extremity Functional Score: 44
== END 2024-06-09 19:00 | disposition home or self-care (01) ==
LOC: PT 13:00
PROVIDERS: PCP Family Medicine; Referring Provider Orthopaedic Surgery; Visit Provider Orthopaedic Surgery
DX: M51.36 Other intervertebral disc degeneration, lumbar region (principal); M16.9 Osteoarthritis of hip, unspecified
CPT/HCPCS: 97035; 97162; 97530